=== PATIENT | male | born 1990 | race Two or more races ===

== ENCOUNTER 2019-04-09 17:10 | Inpatient (IN) | payer MEDICAID ==
[~2019-04-09] VITALS: Ht 180.3 cm; Wt 76.4 kg
[2019-04-09 21:59] VITALS: BP 119/97
[2019-04-09] MEDS ORDERED: INFLUENZA VIRUS VACCINE QVS 2019-20 (3YR+)/PF 60 MCG/0.5 ML SYRINGE IM ONE (22:30)
[2019-04-09] MEDS: LORazepam 2 MG TABLET PO PRN ×2 (22:57→23:01)
[2019-04-10 03:05] VITALS: BP 142/76
[2019-04-10] MEDS: LORazepam 2 MG TABLET PO PRN ×4 (03:07→17:36)
[2019-04-10 08:13] LABS: BASOPHILS % (AUTO) 0.7 % (0.0-2.0); EOSINOPHILS % (AUTO) 2.4 % (1.0-6.0); HEMATOCRIT 41.1 % (41-53); HEMOGLOBIN 13.6 g/dL (13.5-17.5); MEAN CORPUSCULAR HEMOGLOBIN 32.4 pg (26.0-34.0); MEAN CORPUSCULAR VOLUME 98 fL (80-100); MONOCYTES # (AUTO) 1.2 K/uL (0.1-1.0); MONOCYTES % (AUTO) 10.9 % (2.0-9.0); NEUTROPHILS # (AUTO) 7.6 K/uL (1.8-7.7); PLATELET COUNT (AUTO) 198 K/uL (150-450); RED BLOOD CELL COUNT(AUTO) 4.19 MIL/uL (4.50-5.90); RED CELL DISTRIBUTION WIDTH 13.6 % (11.5-14.5)
[2019-04-10] MEDS ORDERED: BENZOCAINE/MENTHOL LOZENGE MM PRN (08:15)
[2019-04-10] MEDS ORDERED: MAGNESIUM HYDROXIDE SUSPENSION 30 ML UDCUP PO PRN (08:15)
[2019-04-10] MEDS ORDERED: BACITRACIN 28.4 GM OINTMENT TP PRN (08:15)
[2019-04-10] MEDS ORDERED: LOPERAMIDE HCL 2 MG CAPSULE PO PRN (08:15)
[2019-04-10] MEDS ORDERED: ONDANSETRON HCL 4 MG TABLET PO PRN (08:15)
[2019-04-10] MEDS ORDERED: ALBUTEROL SULFATE HFA 90 MCG/PUFF 8 GM INHALER IH PRN (08:15)
[2019-04-10] MEDS ORDERED: PETROLATUM,WHITE 28 GM JELLY TP PRN (08:15)
[2019-04-10] MEDS ORDERED: CloNIDine HCL 0.1 MG TABLET PO PRN (08:15)
[2019-04-10] MEDS ORDERED: MAG HYDROX/AL HYDROX/SIMETH ES 30 ML SUSPENSION UDCUP PO PRN (08:15)
[2019-04-10] MEDS ORDERED: ACETAMINOPHEN 325 MG TABLET PO PRN (08:15)
[2019-04-10] MEDS ORDERED: DOCUSATE SODIUM 100 MG CAPSULE PO PRN (08:15)
[2019-04-10] MEDS ORDERED: IBUPROFEN 600 MG TABLET PO PRN (08:15)
[2019-04-10] MEDS ORDERED: OMEPRAZOLE 20 MG CAPSULE PO PRN (08:15)
[2019-04-10 08:28] VITALS: BP 144/76
[2019-04-10 08:33] LABS: ALBUMIN 2.5 g/dL (3.4-5.0); BILIRUBIN,TOTAL 0.8 mg/dL (0.1-1.0); CALCIUM, TOTAL 8.3 mg/dL (8.8-10.5); CREATININE 1.39 mg/dL (0.60-1.30); POTASSIUM 4.1 mmol/L (3.5-5.1); TOTAL PROTEIN, SERUM 6.1 g/dL (6.4-8.2)
[2019-04-10 20:49] VITALS: BP 117/54
[2019-04-11 04:41] VITALS: BP 111/59
[2019-04-11 09:00] VITALS: BP 109/82
[2019-04-11] MEDS: LORazepam 2 MG TABLET PO PRN ×3 (09:16→18:38)
[2019-04-11] MEDS ORDERED: ESCITALOPRAM OXALATE 10 MG TABLET PO SCH (11:15)
[2019-04-11 16:00] VITALS: BP 104/53
[2019-04-11] MEDS: ZOLPIDEM TARTRATE 10 MG TABLET PO PRN (20:29)
[2019-04-12 04:53] VITALS: BP 102/78
[2019-04-12] MEDS: LORazepam 2 MG TABLET PO PRN ×4 (04:54→20:36)
[2019-04-12] MEDS: ESCITALOPRAM OXALATE 10 MG TABLET PO SCH (08:20)
[2019-04-12 09:11] VITALS: BP 115/62
[2019-04-12 17:05] VITALS: BP 123/87
[2019-04-12] MEDS: ZOLPIDEM TARTRATE 10 MG TABLET PO PRN (18:46)
[2019-04-13 08:00] VITALS: BP 142/99
[2019-04-13] MEDS: ESCITALOPRAM OXALATE 10 MG TABLET PO SCH (08:14)
[2019-04-13] MEDS: LORazepam 2 MG TABLET PO PRN ×2 (08:46→17:54)
[2019-04-13 18:23] VITALS: BP 145/63
[2019-04-13] MEDS ORDERED: ESCI10TA PO (18:44)
== END 2019-04-13 19:30 | disposition home or self-care (01) | DRG 885 ==
LOC: 3EI 20:25
PROVIDERS: ADMIT Psychiatry & Neurology Child & Adolescent Psychiatry; ATTEND Psychiatry & Neurology Child & Adolescent Psychiatry
DX: F33.2 Major depressive disorder, recurrent severe without psychotic features (principal); F41.9 Anxiety disorder, unspecified; G47.00 Insomnia, unspecified; K59.00 Constipation, unspecified; R74.8 Abnormal levels of other serum enzymes; F19.10 Other psychoactive substance abuse, uncomplicated; Z71.6 Tobacco abuse counseling
CPT/HCPCS: 87081